=== PATIENT | female | born 1960 | race Caucasian/White ===

== ENCOUNTER 2020-07-24 10:17 | Outpatient (REF) | payer OTHER, SELFPAY ==
[2020-07-24 11:12] LABS: MANUAL DIFF FLAG NO
[2020-07-24 11:47] LABS: Basophils Absolute Auto 0.1 X10*3/uL (0.0-0.2); Basophils Percent Auto 0.9 % (0-2); Eosinophils Absolute Auto 0.1 X10*3/uL (0.0-0.4); Eosinophils Percent Auto 2.5 % (0-4); Hematocrit 42.3 % (37-47); Hemoglobin 15.1 g/dl (12.0-16.0); Imm Gran Abs Auto 0.02 X10*3/uL (0.00-0.03); Imm Gran Pct Auto 0.4 % (0.0-0.4); Lymphocytes Absolute Auto 2.1 X10*3/uL (1.2-4.9); Lymphocytes Percent Auto 37.7 % (20-40); Mean Corpuscular HGB Conc 35.7 g/dl (31.0-35.0); Mean Corpuscular Hemoglobin 34.6 pg (27.0-33.0); Mean Platelet Volume 11.6 fL (9.4-12.3); Monocytes Absolute Auto 0.4 X10*3/uL (0.1-1.2); Monocytes Percent Auto 7.2 % (2-11); Neutrophils Absolute Auto 2.9 X10*3/uL (2.0-8.3); Neutrophils Percent Auto 51.3 % (45-73); Platelet Count 234 X10*3/uL (160-400); Red Blood Count 4.36 X10*6/uL (4.20-5.50); Red Cell Distribution Width 12.5 % (11.0-16.0); White Blood Count 5.6 X10*3/uL (4.8-10.8)
[2020-07-24 11:52] LABS: Alanine Aminotransferase 21 U/L (0-31); Anion Gap 12 (12-20); Aspartate Amino Transferase 19 U/L (5-31); Blood Urea Nitrogen 18 mg/dL (9-16); Calcium 9.3 mg/dL (8.4-10.2); Carbon Dioxide 25 mmol/L (22-29); Chloride 106 mmol/L (96-108); Cholesterol 225 mg/dL; Estimated Glomerular Filt Rate > 60; Glucose Fasting 81 mg/dL (60-99); HDL Cholesterol 42 mg/dL; LDL Cholesterol Calculated 153 mg/dl; Potassium 4.3 mmol/L (3.3-5.1); Sodium 139 mmol/L (135-145); Triglycerides 152 mg/dL
[2020-07-24 11:58] LABS: Vitamin D 25-OH Total 28.7 ng/mL (>30)
== END 2020-07-24 10:18 | disposition home or self-care (01) ==
LOC: HO.HMGCLDS 10:17
PROVIDERS: PCP Internal Medicine; Visit Provider Internal Medicine
DX: Z00.01 Encounter for general adult medical examination with abnormal findings (principal); E78.2 Mixed hyperlipidemia; Z78.0 Asymptomatic menopausal state; I10 Essential (primary) hypertension
CPT/HCPCS: 36415; 80048; 80061; 82306; 84450; 84460; 85025

== ENCOUNTER 2021-03-05 07:21 | Outpatient (REF) | payer OTHER, SELFPAY ==
--- NOTE | ~2021-03-05 | XR_ITS ---
EXAMINATION: XR BOTH KNEES AP STANDING XR LEFT KNEE, 2 VIEWS CLINICAL INFORMATION: Pain. COMPARISON: None. TECHNIQUE: Standing AP view of both knees and lateral and sunrise views of the left knee. FINDINGS: Right Knee: Mild medial compartment joint space narrowing. Small medial and lateral compartment marginal osteophytes. No osseous erosion. No fracture or dislocation. No abnormal soft tissue calcification. Left Knee: Mild medial compartment joint space narrowing with tiny medial and patellofemoral compartment marginal osteophytes. No osseous erosion. No fracture or dislocation. Superior patellar enthesophytes. No significant joint effusion. XR/XR knee LT 2V IMPRESSION: RIGHT KNEE: Mild medial and lateral compartment arthrosis. LEFT KNEE: Mild medial and patellofemoral compartment arthrosis.
--- NOTE | ~2021-03-05 | XR_ITS ---
EXAMINATION: XR BOTH KNEES AP STANDING XR LEFT KNEE, 2 VIEWS CLINICAL INFORMATION: Pain. COMPARISON: None. TECHNIQUE: Standing AP view of both knees and lateral and sunrise views of the left knee. FINDINGS: Right Knee: Mild medial compartment joint space narrowing. Small medial and lateral compartment marginal osteophytes. No osseous erosion. No fracture or dislocation. No abnormal soft tissue calcification. Left Knee: Mild medial compartment joint space narrowing with tiny medial and patellofemoral compartment marginal osteophytes. No osseous erosion. No fracture or dislocation. Superior patellar enthesophytes. No significant joint effusion. XR/XR knee standing BI IMPRESSION: RIGHT KNEE: Mild medial and lateral compartment arthrosis. LEFT KNEE: Mild medial and patellofemoral compartment arthrosis.
== END 2021-03-05 07:22 | disposition home or self-care (01) ==
LOC: HO.HOSX 07:21
PROVIDERS: Visit Provider Physician Assistant
DX: S83.92XD Sprain of unspecified site of left knee, subsequent encounter (principal)
CPT/HCPCS: 73560; 73565

== ENCOUNTER 2021-07-26 10:41 | Outpatient (REF) | payer OTHER, SELFPAY ==
[2021-07-26 14:05] LABS: Alanine Aminotransferase 16 U/L (0-31); Anion Gap 12 (12-20); Aspartate Amino Transferase 15 U/L (5-31); Blood Urea Nitrogen 15 mg/dL (9-16); Calcium 9.9 mg/dL (8.4-10.2); Carbon Dioxide 23 mmol/L (22-29); Chloride 108 mmol/L (96-108); Cholesterol 260 mg/dL; Estimated Glomerular Filt Rate > 60; Glucose Fasting 82 mg/dL (60-99); HDL Cholesterol 38 mg/dL; LDL Cholesterol Calculated 181 mg/dl; Potassium 4.4 mmol/L (3.3-5.1); Sodium 139 mmol/L (135-145); Triglycerides 205 mg/dL
[2021-07-26 14:27] LABS: Vitamin D 25-OH Total 28.7 ng/mL (>30)
[2021-07-29 05:31] LABS: HPV mRNA E6/E7 rflx Not Detected (Not Detected)
== END 2021-07-26 10:42 | disposition home or self-care (01) ==
LOC: HO.HMGCLDS 10:41
PROVIDERS: Visit Provider Internal Medicine
DX: Z00.01 Encounter for general adult medical examination with abnormal findings (principal); Z12.4 Encounter for screening for malignant neoplasm of cervix; Z11.51 Encounter for screening for human papillomavirus (HPV); E78.2 Mixed hyperlipidemia; Z78.0 Asymptomatic menopausal state
CPT/HCPCS: 36415; 80048; 80061; 82306; 84450; 84460; 87624; 88142

== ENCOUNTER 2024-02-27 09:14 | Outpatient (AMB) | payer OTHER, SELFPAY ==
--- NOTE | 2024-02-27 09:17 | A.OFFPC_ITS ---
Vital Signs 02/27/24 09:19 Height 5 ft 4 in Weight 174 lb 6 oz BMI 29.9 BP 124/80 Blood Pressure Location Rt brachial Position Sitting Pulse 74 Pulse Source Pulse Oximeter Pulse Oximetry (%) 98 Oxygen Delivery Method Room Air Intake Visit Reasons: PE Intake Note: Patient here for physical exam. Last Mammo: 2023 Last Pap: 2021 Colonoscopy: 2019 Allergies No Known Allergies Allergy (Verified 02/27/24 09:44) Medication List - Last Reconciled 02/27/24 by Lisa Matt MD multivitamin 1 tab PO DAILY psyllium 1 packet PO TID Tobacco use date assessed: 02/27/24 Dental Screening Dental Screen Date: 02/27/24 Did you have a dental visit in the last 12 months?: Yes Did you have a dental problem in the last 6 months where you did not have access to dental care?: No Was dental information given to patient?: Patient has dentist HPI PE HPI Details 63-year-old lady with history of mixed d yslipidemia, here today for physical exam. She is up-to-date with her screening mammogram done earlier this year with normal findings. She had her cervical cancer screening done in 2021 which showed no evidence of any intraepithelial malignancy. Up-to-date with her screening colonoscopy done in 2019 with removal of a tubular adenoma due now for her repeat colonoscopy. [facility] Medical History (Updated 02/27/24 @ 09:53 by Lisa Matt MD) Not ready to quit smoking History of adenomatous polyp of colon Vitamin D deficiency Menopause Mixed dyslipidemia Surgical History History of colonoscopy Family History Father No problems noted. Mother Hodgkins lymphoma Son Muscular dystrophy Paternal Grandfather No problems noted. Maternal Grandmother No problems noted. Paternal Grandfather No problems noted. Paternal Grandmother No problems noted. Brother No problems noted. Brother No problems noted. Sister No problems noted. Sister No problems noted. Daughter No problems noted. Daughter No problems noted. Social History Housing: House Alcohol intake: current Patient Tobacco Use Status: Current everyday Tobacco user Cigarette Packs Per Day: 0 Cigarettes Per Day: 5 e-Cigarette/Vaping Use: Never Used Current occupational status: retired Current occupation: rt hand Cognitive needs: No Hearing needs: No Vision needs: Yes (reading glasses) Questionnaire PHQ-9 Over the last 2 weeks, how often have you been bothered by any of the following problems? 1. Little interest or pleasure in doing things: not at all 2. Feeling down, depressed, or hopeless: not at all 3. Trouble falling or staying asleep, or sleeping too much: not at all 4. Feeling tired or having little energy: not at all 5. Poor appetite or overeating: not at all 6. Feeling bad about yourself - or that you are a failure or have let yourself or your family down: not at all 7. Trouble concentrating on things, such as reading the newspaper or watching television: not at all 8. Moving or speaking so slowly that other people could have noticed. Or the opposite - being so fidgety or restless that you have been moving around a lot more than usual: not at all 9. Thoughts that you would be better off or of hurting yourself in some way: not at all Total score: 0 Depression Screening Interpretation: Negative Depression Screening Done: Yes 67183 - PHQ-9 Billing: Yes Source: Developed by Drs. Syed Beatty, Elma Lopez, Alex Matute and colleagues, with an educational teddy from [employer]. Thrive Questionnaire Date Thrive assessed: 02/20/24 I am a: Patient What is your living situation today?: I have a steady place to live Within the past 12 months, did the food you bought not last and you didn't have the money to get more?: Often true Within the past 12 months, did you worry whether your food would run out before you got money to buy more?: I choose not to answer this question Do you have trouble paying for medicines?: No Do you have trouble getting transportation to medical appointments?: No Do you have trouble paying your heating and electricity bill?: No Do you have trouble taking care of your child, family member or friend?: No Do you have trouble with day-to-day activities such as bathing, preparing meals, shopping, managing finances, etc.?: No Are you currently unemployed and looking for a job?: No Are you interested in more education?: No Please select the resources that you would like help with: None Currently or been in a relationship where the following occur: No concerns reported THRIVE Score: 1 AUDIT C Alcohol Use Questionnaire (AUDIT-C) 1. How often do you have a drink containing alcohol?: Monthly or less 2. How many drinks containing alcohol do you have on a typical day when you are drinking?: 1 or 2 3. How often do you have six or more drinks on one occasion?: Less than monthly Total Score: 2 Score Reviewed/Action Taken: No LUMA-7 AMB Questionnaire LUMA-7 Date LUMA - 7 assessed: 02/27/24 Feeling nervous, anxious, or on edge: 0 = Not at all Not being able to stop or control worryin = Not at all Worrying too much about different things: 0 = Not at all Trouble relaxin = Not at all Being so restless that it is hard to sit still: 0 = Not at all Becoming easily annoyed or irritable: 0 = Not at all Feeling afraid as if something awful might happen: 0 = Not at all Total LUMA-7 score (0-4 normal; 5-9 mild; 10-14 moderate; 15-21 severe): 0 Source: Developed by Drs. Syed Beatty, Elma Lopez, Alex Matute and colleagues, with an educational teddy from [employer]. LUMA-7 Assessment Billing LUMA-7 Assessment Tool: LUMA-7 Assessment 70185 Review of Systems Const Denies body aches, Denies fatigue, Denies fever(s), Denies headache(s) and Denies weakness Eyes Denies change in vision, Denies eye discharge and Denies itchy eyes ENT Details: Complaining of tinnitus in left ear with slight decreased hearing Denies dizziness, Denies headache(s), Denies nasal congestion, Denies nasal discharge and Denies sore throat Card Denies chest pain, Denies lightheadedness, Denies palpitations and Denies dyspnea Resp Denies chest congestion, Denies cough, Denies dyspnea and Denies wheezing GI Denies abdominal pain, Denies change in bowel habits and Denies heartburn Denies urinary frequency, Denies genital pruritis, Denies dysuria, Denies sexual dysfunction, Denies urinary incontinence, Denies urinary urgency and Denies vaginal dryness Musc Reports no additional complaints Skin/Breast Denies breast swelling, Denies breast pain, Denies breast mass, Denies lesions and Denies rash Neuro Denies dizziness, Denies headache(s) and Denies weakness Psych Reports no additional complaints Endo Denies fatigue, Denies polydipsia, Denies polyuria and Denies palpitations Marlo/Lymph Denies easy bruising Aller/Immun Denies itchy eyes, Denies seasonal rhinorrhea and Denies wheezing Physical exam (Primary Care) Vital Signs: Last Vital Signs Pulse 74 02/27/24 09:19 BP 124/80 02/27/24 09:19 Pulse Ox 98 02/27/24 09:19 Oxygen Delivery Method Room Air 02/27/24 09:19 BMI result Body Mass Index 29.9 BMI Assessment/Plan discussion: High BMI High, discussed plan: lifestyle, weight reduction, dietary and physical activity Tobacco/Smoking Status: Tobacco use Status Tobacco use date assessed 02/27/24 02/27/24 09:23 Patient Tobacco Use Status Current everyday Tobacco 02/27/24 09:19 e-Cigarette/Vaping Use Never Used 02/27/24 09:19 Are you ready to quit: No Tobacco cessation counseling provided: Yes PHQ-9: PHQ-9 Score PHQ-9: Total score 0 02/27/24 09:23 Depression Screening Interpretation: Negative Thrive Assessment: Date of Thrive Assessment Date Thrive assessed 02/20/24 02/27/24 09:19 Currently or been in a relationship where the following occur: No concerns reported Advance Care Planning discussion: Exists, not on file Const General: healthy appearing, comfortable, no acute distress and alert Nutritional Appearance: obese Orientation/consciousness: patient oriented x3 HENMT Head: Yes normocephalic and Yes atraumatic Ears: TM's normal bilaterally, EAC's normal and Abnormal EAC present (Cerumen flakes present in right ear canal) General nose exam: Normal external nose present and No nasal discharge present Face and sinus: Yes sinuses nontender and Yes face symmetric Mouth: Normal oral and palatal mucosa present and moist mucous membranes Eyes General: appearance normal, both eyes and all related structures Neck Neck: Yes full ROM, Yes no lymphadenopathy and Yes supple Thyroid: Thyroid normal Chest Breast/axilla inspection: normal inspection of the breasts Breast/axilla palpation: normal palpation of the breasts Resp Effort & Inspection: normal respiratory effort and able to speak in complete sentences Auscultation: clear to auscultation bilaterally Cardio Rate: regular rate Rhythm: regular rhythm Heart sounds: S1 normal heart sound present and S2 normal heart sound present Bruits: no abdominal aortic bruits Peripheral pulses: Peripheral pulses 2+ throughout GI Palpation (GI): No Abdominal aortic bruit present, Soft to palpation, nontender and no guarding General: Yes bladder normal to inspection and Yes no CVA tenderness Back/Spine/Pelvis Back: no CVA tenderness Cervical Spine: cervical ROM normal Thoracic/Lumbar Spine: thoracic and lumbar spine normal to inspection Skin Other: Positive tattoo on lower extremity General skin exam: no rashes or lesions noted Neuro General: patient oriented x3, gait normal, tone normal, moves all extremities, Normal light touch and pain sensation and CN's II-XI intact bilaterally Extrem General: Yes normal to inspection, Yes full ROM, Yes no joint enlargement, Yes no pedal edema, Yes no calf tenderness and Yes normal gait Psych Appearance: grossly normal Mental Status: mental status grossly normal Speech and movement: Normal speech and movement present Affect: normal affect Attitude: cooperative Thought process: Normal thought process present Thought content: Normal thought content present Assessment and Plan Assessment & Plan (1) Annual visit for general adult medical examination with abnormal findings: Code(s): Z00.01 - Encounter for general adult medical examination with abnormal findings Plan: Will check appropriate labs. Continue regular dental visit every 6 months and regular eye exams, at least every 2 years, goes to [facility]. Take adequate calcium in diet and vitamin-D 3 at 2000 IU per cap once a day, in addit ion to weight-bearing exercises to help maintain good muscle tone and weight control. Instructed to do self-breast exam, and continue to get yearly mammogram, currently up-to-date, up-to-date with her cervical cancer screening, done in 2021 will repeat again next year. Patient does not want to get further COVID vaccine booster, reminded to get her yearly flu shot, up-to-date with shingles vaccination, reminded to get her tetanus booster (2) History of adenomatous polyp of colon: Code(s): Z86.010 - Personal history of colonic polyps Plan: Referred to GI Clinic for her repeat colonoscopy screening (3) Mixed dyslipidemia: Code(s): E78.2 - Mixed hyperlipidemia Plan: Fasting lipid panel ordered, reinforced importance of following low-cholesterol diet and getting regular exercise (4) Vitamin D deficiency: Code(s): E55.9 - Vitamin D deficiency, unspecified Plan: Ordered a recheck on her vitamin-D level, continue taking multivitamins with D (5) Not ready to quit smoking: Code(s): Z72.0 - Tobacco use Plan: Patient strongly advised to stop smoking, as smoking damages blood vessels, degenerative of joints and spine, damage to lungs and heart., predisposes to developing certain cancers like lung, breast, bladder, colon. She has decreased her cigarette use by 1-2 cigarettes a day. Advised to monitor what triggers are for smoking so that this can be discussed on the next office visit. We can discuss different options to quit smoking when ready. Orders: Orders Alanine Aminotransferase Today E55.9 - Vitamin D deficiency, unspecified, E78.2 - Mixed hyperlipidemia, Z00.01 - Encounter for general adult medical examination with abnormal findings, Z78.0 - Asymptomatic menopausal state, Z86.010 - Personal history of colonic polyps Glucose Fasting Today E55.9 - Vitamin D deficiency, unspecified, E78.2 - Mixed hyperlipidemia, Z00.01 - Encounter for general adult medical examination with abnormal findings, Z78.0 - Asymptomatic menopausal state, Z86.010 - Personal history of colonic polyps Hemoglobin and Hematocrit Today E55.9 - Vitamin D deficiency, unspecified, E78.2 - Mixed hyperlipidemia, Z00.01 - Encounter for general adult medical examination with abnormal findings, Z78.0 - Asymptomatic menopausal state, Z86.010 - Personal history of colonic polyps Vitamin D 25-OH Total Today E55.9 - Vitamin D deficiency, unspecified, E78.2 - Mixed hyperlipidemia, Z00.01 - Encounter for general adult medical examination with abnormal findings, Z78.0 - Asymptomatic menopausal state, Z86.010 - Personal history of colonic polyps Lipid Panel Today E55.9 - Vitamin D deficiency, unspecified, E78.2 - Mixed hyperlipidemia, Z00.01 - Encounter for general adult medical examination with abnormal findings, Z78.0 - Asymptomatic menopausal state, Z86.010 - Personal history of colonic polyps Aspartate Amino Transferase Today E55.9 - Vitamin D deficiency, unspecified, E78.2 - Mixed hyperlipidemia, Z00.01 - Encounter for general adult medical examination with abnormal findings, Z78.0 - Asymptomatic menopausal state, Z86.010 - Personal history of colonic polyps Referrals Gastroenterology Referral Z86.010 - Personal history of colonic polyps Coding Level of Care Code Est Pt Prev Care 40-64y(86022) Diagnoses Annual visit for general adult medical examination with abnormal findings Z00.01 History of adenomatous polyp of colon Z86.010 Mixed dyslipidemia E78.2 Vitamin D deficiency E55.9 Not ready to quit smoking Z72.0 Additional Codes LUMA-7 Assessment Billing - LUMA-7 Assessment Tool: LUMA-7 Assessment 42833 ([id number]) Vital Signs *Quality* - Advance Care Planning discussion: Exists, not on file ([id number])
[2024-02-27 09:19] VITALS: BP 124/80; PULSE 74; O2SAT 98; BMI 29.9
== END 2024-02-27 10:03 | disposition home or self-care (01) ==
PROVIDERS: PCP Internal Medicine; Visit Provider Internal Medicine
DX: Z00.00 Encounter for general adult medical examination without abnormal findings (principal); Z86.010 Personal history of colon polyps; E78.2 Mixed hyperlipidemia; E55.9 Vitamin D deficiency, unspecified; Z72.0 Tobacco use
CPT/HCPCS: 1123F; 99396

== ENCOUNTER 2024-02-27 10:04 | Outpatient (REF) | payer OTHER, SELFPAY ==
[2024-02-27 13:18] LABS: Hematocrit 43.4 % (37.0-47.0); Hemoglobin 15.1 g/dl (12.0-16.0)
[2024-02-27 13:38] LABS: Alanine Aminotransferase 17 U/L (0-31); Aspartate Amino Transferase 16 U/L (5-31); Cholesterol 247 mg/dL (<200); Glucose Fasting 85 mg/dL (60-99); HDL Cholesterol 43 mg/dL (>40); LDL Cholesterol Calculated 163 mg/dL (<100); Triglycerides 205 mg/dL (<150)
[2024-02-27 13:44] LABS: Vitamin D 25-OH Total 55.4 ng/mL (>30)
== END 2024-02-27 10:05 | disposition home or self-care (01) ==
LOC: HO.HMGCLDS 10:04
PROVIDERS: PCP Internal Medicine; Visit Provider Internal Medicine
DX: Z00.01 Encounter for general adult medical examination with abnormal findings (principal); E55.9 Vitamin D deficiency, unspecified; E78.2 Mixed hyperlipidemia; Z78.0 Asymptomatic menopausal state; Z86.010 Personal history of colon polyps
CPT/HCPCS: 36415; 80061; 82306; 82947; 84450; 84460; 85014; 85018

== ENCOUNTER 2024-11-12 08:44 | Outpatient (AMB) | payer OTHER, SELFPAY ==
--- NOTE | 2024-11-12 08:47 | A.OFFVIS_ITS ---
Vital Signs 11/12/24 08:48 Height 5 ft 4 in Weight 178 lb 9.191 oz BMI 30.6 BP 94/54 L Blood Pressure Location Rt brachial Position Sitting Pulse 72 Intake Visit Reasons: Colonoscopy Screening Intake Note: Jennifer presents in the office as a new patient for a colonoscopy screening. CC: Allergies No Known Allergies Allergy (Verified 11/12/24 09:01) HPI HPI Colonoscopy Screening: Details: 64-year-old female here for preprocedural be discuss a screening colonoscopy. She is referred by Lisa Matt. PMX High cholesterol History of TA Smoker - quit 15 yrs * SURGICAL HISTORY Colonoscopy-2012 [place], 2019-has son * ALLERGIES: NKDA * [employer] LABS: none recent TODAY'S VISIT This is her 3rs colonoscopy She denies any bowel or upper GI problems. There are no prior problems with sedation and she is naive to anesthesia. She denies any cardiac or respiratory problems. There are no infectious disease problems. She had 1 TA and multiple hyperplastic polyps and her last colonoscopy. COUNTS INCLUDE 234 BEDS AT THE [facility] Medical History Not ready to quit smoking History of adenomatous polyp of colon Vitamin D deficiency Menopause Mixed dyslipidemia Surgical History History of colonoscopy Family History Father No problems noted. Mother Hodgkins lymphoma Son Muscular dystrophy Paternal Grandfather No problems noted. Maternal Grandmother No problems noted. Paternal Grandfather No problems noted. Paternal Grandmother No problems noted. Brother No problems noted. Brother No problems noted. Sister No problems noted. Sister No problems noted. Daughter No problems noted. Daughter No problems noted. Social History Housing: House Alcohol intake: current Patient Tobacco Use Status: Current everyday Tobacco user Cigarette Packs Per Day: 0 Cigarettes Per Day: 2 e-Cigarette/Vaping Use: Never Used Current occupational status: retired Current occupation: rt hand Cognitive needs: No Hearing needs: No Vision needs: Yes (reading glasses) Review of Systems Const Denies fatigue, Denies fever(s), Denies night sweats, Denies poor appetite and Denies weight loss ENT Reports Normal hearing present, Denies dental pain, Denies dysphagia, Denies hearing loss, Denies mouth pain, Denies odynophagia, Denies throat swelling, Denies tongue swelling and Reports other (Dentition adequate) Card Reports no additional complaints Resp Reports no additional complaints GI Details: Denies abdominal pain, Denies melena, Denies bloating, Denies hematochezia, Denies constipation, Denies GI cramping, Denies dysphagia, Denies excessive flatus, Denies early satiety, Denies heartburn, Denies diarrhea, Denies nausea, Denies odynophagia, Denies vomiting and Denies hematemesis Skin/Breast Denies pruritus, Denies lesions, Denies rash and Denies jaundice Neuro Reports Normal hearing present and Denies Abnormal speech present Endo Denies fatigue Aller/Immun Denies throat swelling and Denies tongue swelling Physical Exam Vital Signs: Last Vital Signs Pulse 72 11/12/24 08:48 BP 94/54 L 11/12/24 08:48 BMI result Body Mass Index 30.6 Const General: cooperative, no acute distress, well developed and well groomed Nutritional Appearance: well nourished and obese Orientation/consciousness: oriented to person, oriented to place and oriented to time Limitations: No language barrier HEENT Head: Yes normocephalic and Yes atraumatic Eyes General: appearance normal, both eyes and all related structures Pupils: Equal, round and reactive pupils present Neck Neck: Yes normal visual inspection and Yes no lymphadenopathy Thyroid: Thyroid normal Resp Effort & Inspection: normal respiratory effort and able to speak in complete sentences Auscultation: clear to auscultation bilaterally Cardio Rate: regular rate Rhythm: regular rhythm Heart sounds: Normal, physiologic split S2 sound present Peripheral pulses: radial pulses present and posterior tibial pulses present GI Inspection: No distended, No Abdominal panniculus present and Yes obesity Palpation (GI): Soft to palpation, nontender, no guarding, not rigid and No hepatosplenomegaly present Percussion: Yes normal to percussion Auscultation: normal bowel sounds Rectal Exam - Female: deferred Skin General skin exam: no rashes or lesions noted, turgor normal, skin not dry, no jaundice, No spider nevi and no striae Rashes: no rashes Nails: normal Neuro General: oriented to person, oriented to place and oriented to time Cranial nerves: Yes Equal, round and reactive pupils present and Yes Normal hearing present Speech: No Abnormal speech present Extrem General: Yes normal to inspection, No clubbing, No cyanosis and No edema Psych Appearance: grossly normal and well kempt Mental Status: mental status grossly normal Speech and movement: Normal speech and movement present Affect: normal affect Attitude: cooperative Thought process: Normal thought process present and not confabulating Thought content: Normal thought content present Insight: Good insight present (Psych) Judgement: Good judgement present (Psych) Assessment & Plan Assessment & Plan (1) Pre-op examination: Code(s): Z01.818 - Encounter for other preprocedural examination Category: Medical (2) History of adenomatous polyp of colon: Code(s): Z86.010 - Personal history of colon polyps Category: Medical Plan This is her 3rs colonoscopy She denies any bowel or upper GI problems. There are no prior problems with sedation and she is naive to anesthesia. She denies any cardiac or respiratory problems. There are no infectious disease problems. She had 1 TA and multiple hyperplastic polyps and her last colonoscopy. Orders: Orders Comprehensive Met. Panel Today Z01.818 - Encounter for other preprocedural examination Complete Blood Count Auto Diff Today Z01.818 - Encounter for other preprocedural examination Colonoscopy - GI Use Only Today Z01.818 - Encounter for other preprocedural examination Medications: New sodium,potassium,mag sulfates 17.5-3.13-1.6 gram (Suprep Bowel Prep Kit) 480 mL orally; FOR COLONOSCOPY PREP 354 mL 0RF Coding Level of Care Code New Pt Level 3 (88093) Diagnoses Pre-op examination Z01.818 History of adenomatous polyp of colon Z86.010
[2024-11-12 08:48] VITALS: BP 94/54; PULSE 72; BMI 30.6
--- OUTSIDE RECORDS SUMMARY | 2024-11-12 09:03 | XMS_ITS | Clinical Summary ---
Author Organization [address] Address [address] [place] [address] Phone Care Team Providers Care Manager Marketing Communication Name Role Phone Lisa Matt MD Primary Care Provider Encounters Date Type Department Care Team Description 08/28/2024 8:21 AM EDT - 08/28/2024 11:59 PM EDT Hospital Encounter Radiology Department [address] [phone] Encounter for screening mammogram for breast cancer Discharge Disposition: Home or Self Care from Last 3 Months Surgical History Surgery Date Site/Laterality Comments OTHER SURGICAL HISTORY PROCEDURE: [place] LIG/TRNSXJ FLP TUBE ABDL/VAG APPR UNI/BI Medical History Medical History Date Comments Other specified personal his tory presenting hazards to health(V15.89) DX:Other specifie d personal history presenting hazards to health(V15.89); COMMENT: 15V YEARS AGO Family History Medical History Relation Name Comments No Known Problems Daughter No Known Problems Father No Known Problems Maternal Grandfather No Known Problems Maternal Grandmother Other cancer Mother HODGKINS LYMPHO MA No Known Problems Other No Known Problems Paternal Grandfather No Known Problems Paternal Grandmother No Known Problems Sister Breast cancer Neg Hx Relation Name Status Comments Daughter Father Maternal Grandfather Maternal Grandmother Mother Other Paternal Grandfather Paternal Grandmother Sister Social History Tobacco Use Types Packs/Day Years Used Date Smoking Tobacco: Every Day Cigarettes Smokeless Tobacco: Never Alcohol Use Standard Drinks/Week Comments Yes 0 (1 standard drink = 0.6 oz pur e alcohol) Comments Unknown Sex and Gender Information Value Date Recorded Sex Assigned at Not on file Legal Sex Female 3:42 AM EST Gender Identity Not on file Sexual Orientation Not on file Obstetrics History Para Term AB IAB SAB Ectopic Multiple Livin g Live Births 3 3 3 3 Date Outcome GA Total Labor Labor/2nd/3rd Weight Sex Type Anes PTL Crystal A1 A5 Name Clin Term Term Term Plan of Treatment Upcoming Encounters Date Type Department Care Team (Late st Contact Info) Description 08/29/2025 8:20 AM EDT Appointment Radiology Department [address] [phone] Health Maintenance Due Date Last Done Comments DTaP,Tdap,and Td Vaccines (1 - Tdap) 1981 Pneumococcal Vaccine: 50+ Years (1 of 2 - PCV) 1981 Pneumococcal Vaccine: Pediatrics (0 to 5 Years) and At-Risk Patients (6 to 64 Years) (1 of 2 - PCV) 1981 Cervical Cancer Screening: Pap Smear 10/07/1983 Cholesterol Screening (Lipid Panel) 05/28/2022 Colorectal Cancer Screening: Colonoscopy 05/28/2022 Depression Screening 05/28/2022 HIV Screening 05/28/2022 Hepatitis C Screening 05/28/2022 Social Influencers of Health Screening 05/28/2022 COVID-19 Vaccine ( season) 2024 09/23/2020 Influenza Vaccine (Season Ended) 2025 03/09/2021, 03/10/2020 Breast Cancer Screening 08/28/2026 08/29/19, 08/08/2023, 08/08/2023, Additional history exists RSV Immunization Adult Patients (1 - 1-dose 75+ series) 2037 Zoster Vaccines Completed 06/01/2021, 03/09/2021 HIB Vaccines Aged Out No longer eligi ble based on patient's age to complete this topic HPV Vaccines Aged Out No longer eligi ble based on patient's age to complete this topic Hepatitis A Vaccines Aged Out No long er eligible based on patient's age to complete this topic Hepatitis B Vaccines Aged Out No long er eligible based on patient's age to complete this topic IPV Vaccines Aged Out No longer eligi ble based on patient's age to complete this topic MMR Vaccines Aged Out No longer eligi ble based on patient's age to complete this topic Meningococcal ACWY Vaccine Aged Out N o longer eligible based on patient's age to complete this topic Meningococcal B Vaccine Aged Out No l onger eligible based on patient's age to complete this topic RSV Immunization Patients Under 20 months Aged Out No longer eligible based on patient's age to complete this topic Varicella Vaccines Aged Out No longer eligible based on patient's age to complete this topic Procedures Procedure Name Priority Date/Time Associated Diagnosis Comments MG MAMMO DIGITAL SCREENING W VENKAT BILAT Routine 08/28/2024 8:31 AM EDT Encounter for screening mammogram for breast cancer from Last 3 Months Results * MG Mammo Digital Screening w Venkat bilat (08/28/2024 8:31 AM EDT) Anatomical Region Laterality Modality Breast Bilateral Mammography 08/28/2024 11:2 2 AM EDT Impressions 08/28/2024 11:25 AM EDT Benign. BI-RADS CATEGORY: 1 - NEGATIVE RECOMMENDATION: Screening bilateral mammogram is recommended in 1 year. Mammo Location: [facility], [address] [place] [address], [id number], . -------- FINAL REPORT -------- Dictated By: Aye Irene Dictated Date: 08/28/2024 11:22 ET Assigned Physician: Aye Irene Reviewed and Electronically Signed By: Aye Irene Signed Date: 08/28/2024 11:25 ET Workstation ID: [id number] Transcribed By: Self Edit Transcribed Date: 08/28/2024 11:22 ET Narrative 08/28/2024 11:25 AM EDT CLINICAL: 63 years old, Female, routine annual exam. COMPARISON: Mammograms dating back to 03/05/2020 with most recent of 08/08/2023. ?? TECHNIQUE: Bilateral MLO and CC views were obtained digitally with 3-D mammogram (digital breast tomosynthesis). Computer-aided detection was utilized in evaluation of this exam (CAD). FINDINGS: There is no evidence of suspicious mass or architectural distortion. ??No worrisome calcifications are evident. ??There has been no significant change from prior exam(s). ?? BREAST DENSITY: B - There are scattered areas of fibroglandular density. Procedure Note Aye Irene MD - 08/28/2024 CLINICAL: 63 years old, Female, routine annual exam. COMPARISON: Mammograms dating back to 03/05/2020 with most recent of08/08/2023. TECHNIQUE: Bilateral MLO and CC views were obtained digitally with 3-Dmammogram (digital breast tomosynthesis). Computer-aided detection wasutilized in evaluation of this exam (CAD). FINDINGS: There is no evidence of suspicious mass or architectural distortion. Noworrisome calcifications are evident. There has been no significantchange from prior exam(s). BREAST DENSITY: B - There are scattered areas of fibroglandular density. IMPRESSION: Benign. BI-RADS CATEGORY: 1 - NEGATIVE RECOMMENDATION: Screening bilateral mammogram is recommended in 1 year. Mammo Location: [facility], [address] [place] [address], [id number], . -------- FINAL REPORT -------- Dictated By: Aye Irene Dictated Date: 08/28/2024 11:22 ET Assigned Physician: Aye Irene Reviewed and Electronically Signed By: Aye Irene Signed Date: 08/28/2024 11:25 ET Workstation ID: [id number] Transcribed By: Self Edit Transcribed Date: 08/28/2024 11:22 ET us Lisa Matt MD IMG BI PROCEDURES Final Res ult from Last 3 Months Insurance [facility] Care Teams Manager Marketing Communication Relationship Specialty Start Date End Date Lisa Matt MD [address] [place] [address] PCP - General 10/10/06
== END 2024-11-12 09:28 | disposition home or self-care (01) ==
LOC: HO.HGI 08:45
PROVIDERS: PCP Internal Medicine; Visit Provider Nurse Practitioner
DX: Z01.818 Encounter for other preprocedural examination (principal); Z12.11 Encounter for screening for malignant neoplasm of colon; Z86.0100 Personal history of colon polyps, unspecified
CPT/HCPCS: 99203

== ENCOUNTER 2024-11-12 08:44 | Outpatient (REF) | payer OTHER, SELFPAY ==
[2024-11-12 09:56] LABS: MANUAL DIFF FLAG NO
[2024-11-12 10:22] LABS: Basophils Absolute Auto 0.1 X10*3/uL (0.0-0.2); Basophils Percent Auto 1.3 % (0-2); Eosinophils Absolute Auto 0.1 X10*3/uL (0.0-0.4); Eosinophils Percent Auto 1.4 % (0-4); Hematocrit 43.2 % (37.0-47.0); Hemoglobin 14.8 g/dl (12.0-16.0); Imm Gran Abs Auto 0.02 X10*3/uL (0.00-0.03); Imm Gran Pct Auto 0.3 % (0.0-0.4); Lymphocytes Absolute Auto 2.6 X10*3/uL (1.2-4.9); Lymphocytes Percent Auto 33.2 % (20-40); Mean Corpuscular HGB Conc 34.3 g/dl (31.0-35.0); Mean Corpuscular Hemoglobin 31.7 pg (27.0-33.0); Mean Corpuscular Volume 92.5 fL (80.0-98.0); Mean Platelet Volume 10.4 fL (9.4-12.3); Monocytes Absolute Auto 0.7 X10*3/uL (0.1-1.2); Monocytes Percent Auto 8.8 % (2-11); Neutrophils Absolute Auto 4.3 x10*3/uL (2.0-8.3); Platelet Count 249 X10*3/uL (160-400); Red Blood Count 4.67 X10*6/uL (4.20-5.50); White Blood Count 7.8 X10*3/uL (4.8-10.8)
[2024-11-12 11:06] LABS: Alanine Aminotransferase 52 U/L (0-31); Albumin Level 4.3 g/dL (3.5-5.0); Alkaline Phosphatase 73 U/L (39-117); Anion Gap 12 (12-20); Aspartate Amino Transferase 20 U/L (5-31); Bilirubin Total 0.4 mg/dL (0.0-1.0); Blood Urea Nitrogen 21 mg/dL (9-16); Calcium 9.4 mg/dL (8.4-10.2); Carbon Dioxide 22 mmol/L (22-29); Chloride 109 mmol/L (96-108); Estimated Glomerular Filt Rate > 60; Glucose Random 83 mg/dL (60-115); Potassium 4.4 mmol/L (3.3-5.1); Sodium 139 mmol/L (135-145); Total Protein 7.4 g/dL (6.5-8.0)
== END 2024-11-12 08:45 | disposition home or self-care (01) ==
LOC: HO.LAB 08:44
PROVIDERS: PCP Internal Medicine; Visit Provider Nurse Practitioner
DX: Z01.818 Encounter for other preprocedural examination (principal)
CPT/HCPCS: 36415; 80053; 85025

== ENCOUNTER 2025-03-13 08:30 | Outpatient (REF) | payer OTHER, SELFPAY ==
[2025-03-13 13:46] LABS: Alanine Aminotransferase 21 U/L (0-31); Albumin Level 4.4 g/dL (3.5-5.0); Alkaline Phosphatase 87 U/L (39-117); Anion Gap 10 (12-20); Aspartate Amino Transferase 26 U/L (5-31); Blood Urea Nitrogen 13 mg/dL (9-16); Calcium 9.5 mg/dL (8.4-10.2); Carbon Dioxide 27 mmol/L (22-29); Chloride 107 mmol/L (96-108); Cholesterol 260 mg/dL (<200); Estimated Glomerular Filt Rate > 60; HDL Cholesterol 46 mg/dL (>40); Potassium 4.2 mmol/L (3.3-5.1); Sodium 140 mmol/L (135-145); Total Protein 7.5 g/dL (6.5-8.0); Triglycerides 230 mg/dL (<150)
== END 2025-03-13 08:31 | disposition home or self-care (01) ==
LOC: HO.HMGCLDS 08:30
PROVIDERS: PCP Internal Medicine; Visit Provider Internal Medicine
DX: Z00.01 Encounter for general adult medical examination with abnormal findings (principal); E78.2 Mixed hyperlipidemia; Z78.0 Asymptomatic menopausal state; Z72.0 Tobacco use; Z79.899 Other long term (current) drug therapy; Z71.89 Other specified counseling
CPT/HCPCS: 36415; 80053; 80061; 82306; 96127

== ENCOUNTER 2025-03-13 08:30 | Outpatient (AMB) | payer OTHER, SELFPAY ==
[2025-03-13 08:46] VITALS: BP 122/86; PULSE 75; TEMP 36.7; O2SAT 97; BMI 31.1
--- NOTE | 2025-03-13 08:46 | MHC.PC.OV ---
Vital Signs 03/13/25 08:46 Height 5 ft 4 in Weight 181 lb BMI 31.1 BP 122/86 Blood Pressure Location Lt brachial Position Sitting Pulse 75 Pulse Source Pulse Oximeter Temp 98.0 F Temp Source Oral Pulse Oximetry (%) 97 Oxygen Delivery Method Room Air Intake Visit Reasons: Annual visit Intake Note: Pt is here today for her PE: Last mammogram 08/08/23, papsmear 07/27/21 Plan Checker Required: No Allergies No Known Allergies Allergy (Verified 03/13/25 09:06) Medication List - Last Reconciled 03/13/25 by Lisa Matt MD multivitamin 1 tab PO DAILY psyllium husk (Metamucil) 0.4 grams PO DAILY sodium,potassium,mag sulfates 17.5-3.13-1.6 gram (Suprep Bowel Prep Kit) 480 mL orally; FOR COLONOSCOPY PREP Tobacco use date assessed: 03/13/25 Dental Screening Dental Screen Date: 03/13/25 Did you have a dental visit in the last 12 months?: Yes Did you have a dental problem in the last 6 months where you did not have access to dental care?: No Was dental information given to patient?: Patient has dentist HPI Annual visit HPI Details 64-year-old lady here today for her physical exam. She goes to [facility] for her breast cancer screening, with last mammogram on record from July 2023 showing benign findings. Patient states that she had her mammogram done again this year at [facility], copy of results requested. She is up-to-date with her cervical cancer screening, with last Pap smear done here in 2021 showing benign findings negative for HPV. The patient is scheduled for a colonoscopy,, already seen by [facility] for her initial visit October 2024. She is awaiting an appointment for the colonoscopy, which was initially discussed in October. A precancerous polyp was removed during her last colonoscopy. She is not ready to quit smoking but has reduced her intake to two cigarettes per day. Has history of hyperlipidemia, with cholesterol levels slightly elevated last year. She walks regularly for exercise but does not follow any diet. Does not want to get any vaccines [facility] Medical History Not ready to quit smoking History of adenomatous polyp of colon Vitamin D deficiency Menopause Mixed dyslipidemia Surgical History History of colonoscopy Family History Father No problems noted. Mother Hodgkins lymphoma Son Muscular dystrophy Paternal Grandfather No problems noted. Maternal Grandmother No problems noted. Paternal Grandfather No problems noted. Paternal Grandmother No problems noted. Brother No problems noted. Brother No problems noted. Sister No problems noted. Sister No problems noted. Daughter No problems noted. Daughter No problems noted. Social History Housing: House Alcohol intake: current Patient Tobacco Use Status: Current everyday Tobacco user Cigarette Packs Per Day: 0 Cigarettes Per Day: 2 e-Cigarette/Vaping Use: Never Used Current occupational status: retired Current occupation: rt hand Cognitive needs: No Hearing needs: No Vision needs: Yes (reading glasses) Questionnaire PHQ-9 Over the last 2 weeks, how often have you been bothered by any of the following problems? 1. Little interest or pleasure in doing things: not at all 2. Feeling down, depressed, or hopeless: not at all 3. Trouble falling or staying asleep, or sleeping too much: not at all 4. Feeling tired or having little energy: not at all 5. Poor appetite or overeating: not at all 6. Feeling bad about yourself - or that you are a failure or have let yourself or your family down: not at all 7. Trouble concentrating on things, such as reading the newspaper or watching television: not at all 8. Moving or speaking so slowly that other people could have noticed. Or the opposite - being so fidgety or restless that you have been moving around a lot more than usual: not at all 9. Thoughts that you would be better off or of hurting yourself in some way: not at all Total score: 0 Depression Screening Interpretation: Negative Depression Screening Done: Yes 12205 - PHQ-9 Billing: Yes Source: Developed by Drs. Syed Beatty, Elma Lopez, Alex Matute and colleagues, with an educational teddy from [employer]. Thrive Questionnaire Date Thrive assessed: 03/13/25 I am a: Patient What is your living situation today?: I have a steady place to live Within the past 12 months, did the food you bought not last and you didn't have the money to get more?: Never true Within the past 12 months, did you worry whether your food would run out before you got money to buy more?: Never true Do you have trouble paying for medicines?: No Do you have trouble getting transportation to medical appointments?: No Do you have trouble paying your heating and electricity bill?: No Do you have trouble taking care of your child, family member or friend?: No Do you have trouble with day-to-day activities such as bathing, preparing meals, shopping, managing finances, etc.?: No Are you currently unemployed and looking for a job?: No Are you interested in more education?: No Please select the resources that you would like help with: None Currently or been in a relationship where the following occur: No concerns reported THRIVE Score: 0 AUDIT C Alcohol Use Questionnaire (AUDIT-C) 1. How often do you have a drink containing alcohol?: Monthly or less 2. How many drinks containing alcohol do you have on a typical day when you are drinking?: 1 or 2 3. How often do you have six or more drinks on one occasion?: Never Total Score: 1 LUMA-7 AMB Questionnaire LUMA-7 Date LUMA - 7 assessed: 03/13/25 Feeling nervous, anxious, or on edge: 0 = Not at all Not being able to stop or control worryin = Not at all Worrying too much about different things: 0 = Not at all Trouble relaxin = Not at all Being so restless that it is hard to sit still: 0 = Not at all Becoming easily annoyed or irritable: 0 = Not at all Feeling afraid as if something awful might happen: 0 = Not at all Total LUMA-7 score (0-4 normal; 5-9 mild; 10-14 moderate; 15-21 severe): 0 Source: Developed by Drs. Syed Beatty, Elma Lopez, Alex Matute and colleagues, with an educational teddy from [employer]. LUMA-7 Assessment Billing LUMA-7 Assessment Tool: LUMA-7 Assessment 23248 Review of Systems Const Denies body aches, Denies fatigue, Denies fever(s), Denies headache(s) and Denies weakness Eyes Details: Sees [facility] Denies change in vision, Denies eye discharge and Denies itchy eyes ENT Details: Complaining of tinnitus in left ear with slight decreased hearing Denies dizziness, Denies headache(s), Denies nasal congestion, Denies nasal discharge and Denies sore throat Card Denies chest pain, Denies lightheadedness, Denies palpitations and Denies dyspnea Resp Denies chest congestion, Denies cough, Denies dyspnea and Denies wheezing GI Denies abdominal pain, Denies change in bowel habits and Denies heartburn Denies urinary frequency, Denies genital pruritis, Denies dysuria, Denies sexual dysfunction, Denies urinary incontinence and Denies vaginal dryness Musc Reports no additional complaints Skin/Breast Denies breast swelling, Denies breast pain, Denies breast mass, Denies lesions and Denies rash Neuro Denies dizziness, Denies headache(s) and Denies weakness Psych Reports no additional complaints Endo Denies fatigue, Denies polydipsia, Denies polyuria and Denies palpitations Marlo/Lymph Denies easy bruising Aller/Immun Denies itchy eyes, Denies seasonal rhinorrhea and Denies wheezing Physical exam (Primary Care) Vital Signs: Last Vital Signs Temp 98.0 F 03/13/25 08:46 Pulse 75 03/13/25 08:46 BP 122/86 03/13/25 08:46 Pulse Ox 97 03/13/25 08:46 Oxygen Delivery Method Room Air 03/13/25 08:46 BMI result Body Mass Index 31.1 Tobacco/Smoking Status: Tobacco use Status Tobacco use date assessed 03/13/25 03/13/25 08:58 Patient Tobacco Use Status Current everyday Tobacco 03/13/25 08:47 e-Cigarette/Vaping Use Never Used 03/13/25 08:47 PHQ-9: PHQ-9 Score PHQ-9: Total score 0 03/13/25 09:27 Depression Screening Interpretation: Negative Thrive Assessment: Date of Thrive Assessment Date Thrive assessed 03/06/25 03/13/25 08:47 Currently or been in a relationship where the following occur: No concerns reported Advance Care Planning discussion: Completed/Scanned Date of discussion: 03/13/25 Who was present: Patient Forms completed: Health Care Proxy Time spent: 16-45 minutes Actual minutes spent: 1 Const Orientation/consciousness: patient oriented x3 HENMT Ears: external ears normal and Abnormal EAC present excessive cerumen bilateral General nose exam: Normal external nose present Face and sinus: Yes face symmetric Mouth: Normal oral and palatal mucosa present and moist mucous membranes Eyes General: appearance normal, both eyes and all related structures Neck Other: Nonpalpable thyroid Neck: Yes full ROM, Yes no lymphadenopathy and Yes supple Chest Chest palpation & inspection: normal inspection of the chest Breast/axilla palpation: normal palpation of the breasts Resp Other: Requested latest mammogram report from [facility] done this year Cardio Rate: regular rate Rhythm: regular rhythm Heart sounds: S1 normal heart sound present and S2 normal heart sound present GI Inspection: Yes normal to inspection Palpation (GI): Soft to palpation, nontender, no guarding and no masses Auscultation: normal bowel sounds Other: Declined cervical cancer screening or pelvic exam to be done this year, wants to do it next year's physical General: Yes no CVA tenderness Back/Spine/Pelvis Back: no CVA tenderness and No back tenderness Skin General skin exam: no rashes or lesions noted Neuro General: patient oriented x3, gait normal, moves all extremities and no focal motor deficits Gait exam (Neuro): Normal gait present Extrem General: Yes full ROM, Yes no joint enlargement, Yes no clubbing, cyanosis or edema and Yes normal gait Psych Appearance: grossly normal Mental Status: mental status grossly normal Speech and movement: Normal speech and movement present Affect: normal affect Results Reviewed Results Reviewed: Name: Jennifer Sanders Age/Sex: 64/F : 1960 Unit#: [id number] Attend Dr: Jimenez ANP-C Re11/12/24 Status: DEP REF Location: .LAB Disch: SPEC : [id number] DANILO: 11/12/24 STATUS: COMP REQ : [id number] RECD: 11/12/[address]: Jimenez ANP-C COMP: 11/12/246 ENTERED: 11/12/[address]: Lisa Matt MD ORDERED: CMP Test Result Flag Reference Sodium 139 135-145 mmol/L Potassium 4.4 3.3-5.1 mmol/L CL 109 H 96-108 mmol/L CO2 22 22-29 mmol/L Gap 12 12-20 BUN 21 H 9-16 mg/dL Creat 0.59 0.5-1.4 mg/dL eGFR > 60 Chronic Kidney Disease: Estimated GFR < 60 mL/min/1.73m2 Severe Kidney Disease: Estimated GFR < 15 mL/min/1.73m2 Glucose, Random 83 60-115 mg/dL CA 9.4 8.4-10.2 mg/dL Total Bili 0.4 0.0-1.0 mg/dL AST (GOT) 20 5-31 U/L ALT (GPT) 52 H 0-31 U/L Protein, Total 7.4 6.5-8.0 g/dL Alb 4.3 3.5-5.0 g/dL Alk Phos 73 39-117 U/L Name: Jennifer Sanders Age/Sex: 64/F : 1960 Unit#: [id number] Attend Dr: Jimenez ANP-C Re11/12/24 Status: DEP REF Location: .LAB Disch: SPEC : [id number] DANILO: 11/12/24 STATUS: COMP REQ : [id number] RECD: 11/12/[address]: Jimenez ANP-C COMP: 11/12/24 ENTERED: 11/12/[address]: Lisa Matt MD ORDERED: CBC Auto Diff Test Result Flag Reference WBC 7.8 4.8-10.8 X10*3/uL RBC 4.67 4.20-5.50 X10*6/uL HGB 14.8 12.0-16.0 g/dl HCT 43.2 37.0-47.0 % MCV 92.5 80.0-98.0 fL MCH 31.7 27.0-33.0 pg MCHC 34.3 31.0-35.0 g/dl RDW 13.0 11.0-16.0 % PLT 249 160-400 X10*3/uL MPV 10.4 9.4-12.3 fL Neut Pct Auto 55.0 45-73 % ImGran Pct Auto 0.3 0.0-0.4 % Lymp Pct Auto 33.2 20-40 % Upton Pct Auto 8.8 2-11 % Eos Pct Auto 1.4 0-4 % Baso Pct Auto 1.3 0-2 % NRBC Pct Auto 0.0 0.0-0.2 /100WBC ANC Neut Abs # 4.3 2.0-8.3 x10*3/uL ImGran Abs Auto 0.02 0.00-0.03 X10*3/uL Lymph Abs Auto 2.6 1.2-4.9 X10*3/uL Upton Abs Auto 0.7 0.1-1.2 X10*3/uL Eos Abs Auto 0.1 0.0-0.4 X10*3/uL Baso Abs Auto 0.1 0.0-0.2 X10*3/uL NRBC Abs Auto 0.000 0.0-0.012 X10*3/uL Coding Level of Care Code Est Pt Prev Care 40-64y(69391) Diagnoses Annual visit for general adult medical examination with abnormal findings Z00.01 Mixed dyslipidemia E78.2 Not ready to quit smoking Z72.0 Advance directive discussed with patient Z71.89 Additional Codes PHQ-9 - 64846 - PHQ-9 Billing: Yes ([id number]) LUMA-7 Assessment Billing - LUMA-7 Assessment Tool: LUMA-7 Assessment 47584 ([id number]) Vital Signs *Quality* - Advance Care Planning discussion: Completed/Scanned ([id number]) Vital Signs *Quality* - Time spent: 16-45 minutes ([id number]) Assessment & Plan Assessment & Plan (1) Annual visit for general adult medical examination with abnormal findings: Code(s): Z00.01 - Encounter for general adult medical examination with abnormal findings Plan: Will check appropriate labs. Recommended dental visit every 6 months and regular eye exams, at least every 2 years, goes to [facility]. Take adequate calcium in diet and vitamin-D 3 at 2000 IU per cap once a day, in addition to weight-bearing exercises to help maintain good muscle tone and weight control. Instructed to do self-breast exam, and continue with yearly mammogram, copy of last mammogram report requested from [facility]. Patient is up-to-date with her cervical cancer screening, will do another Pap smear and pelvic exam next year's physical. Awaiting appointment for her screening colonoscopy to be done at [facility]. Patient does not want to get any vaccines (2) Mixed dyslipidemia: Code(s): E78.2 - Mixed hyperlipidemia Category: Medical Plan: Fasting lipid panel ordered today. . stressed importance of adherence to low-cholesterol diet and regular exercise, at least 30 minutes 3 to 4 times a week. Advised patient to make healthy food choices, eat more fruits, vegetables, whole grains, wild caught fish and low-fat dairy. Limit amount of meat and fried or fatty food products, as well as processed foods and fast foods. (3) Not ready to quit smoking: Code(s): Z72.0 - Tobacco use Category: Social Hx Plan: Patient strongly advised to stop smoking, as smoking damages blood vessels, degenerative of joints and spine, damage to lungs and heart., predisposes to developing certain cancers like lung, breast, bladder, colon. Recommended to try decreasing cigarette use by 1-2 cigarettes a day. Advised to monitor what triggers are for smoking so that this can be discussed on the next office visit. We can discuss different options to quit smoking when ready. (4) Advance directive discussed with patient: Code(s): Z71.89 - Other specified counseling Plan: Initiated the conversation about Advanced Directives. Advanced Directives help patients prepare for current and future decisions about their medical treatment and place of care. Discussed with patient that it is a process where a patients current condition and prognosis are reviewed, their wishes for information regarding their illness are elicited, and likely medical dilemmas are presented and options discussed. Healthcare proxy form completed today. The form can be amended as needed, reviewed yearly and make changes as needed Orders: Orders Lipid Panel Today E78.2 - Mixed hyperlipidemia, Z00.01 - Encounter for general adult medical examination with abnormal findings, Z72.0 - Tobacco use, Z78.0 - Asymptomatic menopausal state Comprehensive [place]. Panel Fast Today E78.2 - Mixed hyperlipidemia, Z00.01 - Encounter for general adult medical examination with abnormal findings, Z72.0 - Tobacco use, Z78.0 - Asymptomatic menopausal state Vitamin D 25-OH Total Today E78.2 - Mixed hyperlipidemia, Z00.01 - Encounter for general adult medical examination with abnormal findings, Z72.0 - Tobacco use, Z78.0 - Asymptomatic menopausal state
--- OUTSIDE RECORDS SUMMARY | 2025-03-13 09:03 | XMS_ITS | Clinical Summary ---
Author Organization [address] Address [address] [place] [id number] Phone Care Team Providers Care Library Assistant Name Role Phone Lisa Matt MD Primary Care Provider [phone] Surgical History Surgery Date Site/Laterality Comments OTHER SURGICAL HISTORY PROCEDURE: IN LIG/TRNSXJ FLP TUBE ABDL/VAG APPR UNI/BI Medical [...] Upcoming Encounters Date Type Department Care Team ([facility] st Contact Info) Description 08/29/2025 8:20 AM EDT Appointment Radiology Department - [address] [phone] Health Maintenance Due Date Last Done Comments DTaP,Tdap,and Td Vaccines (1 - Tdap) 1981 Pneumococcal Vaccine: 50+ Years (1 of 2 - PCV) 1981 Cervical Cancer Screening: Pap Smear 10/07/1983 Cholesterol Screening (Lipid Panel) 05/28/2022 Colorectal Cancer Screening: Colonoscopy 05/28/2022 HIV Screening 05/28/2022 Hepatitis C Screening 05/28/2022 Social Influencers of Health Screening 05/28/2022 Depression Screening 06/19/2024 COVID-19 Vaccine (2 - season) 2025 09/23/2020 Influenza Vaccine (#1) 2025 03/09/2021, 2019 Breast Cancer Screening 08/28/2026 08/29/19, 08/08/2023, 08/08/2023, [...] for breast cancer from Last 3 Months or Most Recently Relevant to Health Maintenance Results * MG Mammo Digital Screening w Venkat bilat (08/28/2024 8:31 AM EDT) Anatomical Region Laterality Modality Breast Bilateral Mammography 08/28/2024 11:2 2 AM EDT Impressions 08/28/2024 11:25 AM EDT Benign. BI-RADS CATEGORY: 1 - NEGATIVE RECOMMENDATION: Screening bilateral mammogram is recommended in 1 year. Mammo Location: [facility], [address] [place] [address], [id number], . -------- FINAL REPORT -------- Dictated By: Aye Irene Dictated Date: 08/28/2024 11:22 ET Assigned Physician: Aye Irene Reviewed and Electronically Signed By: Aye Irene Signed Date: 08/28/2024 11:25 ET Workstation ID: [id number] Transcribed By: Self Edit Transcribed Date: 08/28/2024 11:22 ET Narrative 08/28/2024 11:25 AM EDT CLINICAL: 63 years old, Female, routine annual exam. COMPARISON: Mammograms dating back to 03/05/2020 with most recent of 08/08/2023. TECHNIQUE: Bilateral MLO and CC views were obtained digitally with 3-D mammogram (digital breast tomosynthesis). Computer-aided detection was utilized in evaluation of this exam (CAD). FINDINGS: There is no evidence of suspicious mass or architectural distortion. No worrisome calcifications are evident. There has been no significant change from prior exam(s). BREAST DENSITY: B - [...] is recommended in 1 year. Mammo Location: [facility], [address] [place] [address], [id number], . -------- FINAL REPORT -------- Dictated By: Aye Irene Dictated Date: 08/28/2024 11:22 ET Assigned Physician: Aye Irene Reviewed and Electronically Signed By: Aye Irene Signed Date: 08/28/2024 11:25 ET Workstation ID: [id number] Transcribed By: Self Edit Transcribed Date: 08/28/2024 11:22 ET Lisa Matt MD IMG BI PROCEDURES Final Res ult from Last 3 Months or Most Recently Relevant to Health Maintenance Insurance [facility] Care Teams Library Assistant Relationship Specialty Start Date End Date Lisa Matt MD [address] [place] [address] PCP - General 10/10/06
== END 2025-03-13 09:27 | disposition home or self-care (01) ==
LOC: HO.HMCC 08:31
PROVIDERS: PCP Internal Medicine; Visit Provider Internal Medicine
DX: Z00.01 Encounter for general adult medical examination with abnormal findings (principal); E78.2 Mixed hyperlipidemia; Z72.0 Tobacco use; Z71.89 Other specified counseling; Z00.00 Encounter for general adult medical examination without abnormal findings